=== PATIENT | female | born 1995 | race Caucasian/White ===

== ENCOUNTER 2022-01-05 17:43 | Emergency (ER) | payer OTHER, SELFPAY ==
--- NOTE | ~2022-01-05 | XR_ITS ---
XR ankle RT min 3V 01/05/2022 18:03 INDICATION: Right ankle pain after twisting injury PROCEDURE: 4 views right ankle COMPARISON: No prior studies for comparison. FINDINGS: Fracture, dislocation or subluxation is not identified. There are degenerative changes of t he midfoot. There is mild lateral soft tissue swelling. The soft tissues appear within normal limits. No foreign bodies are identified. IMPRESSION: 1: NO ACUTE BONE OR JOINT ABNORMALITY IDENTIFIED. Reviewed, dictated and finalized at location A. [employer]
[2022-01-05 17:50] VITALS: BP 122/66; PULSE 91; RESP 16; TEMP 36.7; O2SAT 99
--- NOTE | 2022-01-05 17:57 | ED.LOWEXIN ---
HPI - Extremity Injury (Lower) General Chief Complaint: Extremity Injury, Lower Stated Complaint: R ANKLE INJURY Time Seen by Provider: 01/05/22 18:00 Source: patient Mode of arrival: ambulatory Limitations: no limitations History of Present Illness HPI Narrative: Helio is a 26-year-old patient presenting to the clinic today with complaints of right ankle pain. He reports that he twisted it 2 days ago when stepping into a pothole while walking the dog. He has swelling and tenderness to the lateral aspect of the ankle with some bruising. Has been resting, elevating, and icing his right ankle with little improvement. Is painful to bear weight however he has been walking on it. Related Data Home Medications Medication Instructions Recorded Confirmed testosterone cypionate 200 mg IM ONCE 01/05/22 01/05/22 [Depo-Testosterone] Allergies Allergy/AdvReac Type Severity Reaction Status Date / Time manzanares Allergy Swelling Verified 01/05/22 17:50 Review of Systems Review of Systems: Pertinent positives per HPI. Patient denies any fever, chills, rash, headache, visual changes, dizziness, cough, runny nose, sore throat, shortness of breath, chest pain, palpitations, nausea, vomiting, diarrhea, constipation, abdominal pain, or any urinary issues. PMFSH Comments At the time of my signature, I reviewed and agree with the nursing past medical, surgical, social, and family history. There is no relevant family history pertinent to the patient complaint. Exam Narrative: General: Well-developed, well nourished, in no apparent distress Cardio: Regular rate and rhythm, s1 and s2 normal, no murmur appreciated. Resp: Clear to auscultation bilaterally, no rhonchi, rales, wheezing or rubs. Musculoskeletal: No deformity, tenderness to palpation over the lateral right ankle, old bruising noted just below the distal fibula, grossly normal range of motion, strong plantar and dorsal flexion with pain with resistance ,negative foot drop, pain with valgus and varus testing, negative anterior and posterior drawer sign, limping gait and station Course Course Emergency Course: Portions of this record may have been created with voice recognition software. Level of Care: Express Care Visit Vital Signs Vital signs: Vital Signs Temperature 36.7 C 01/05/22 17:50 Pulse Rate 91 01/05/22 17:50 Respiratory Rate 16 01/05/22 17:50 Blood Pressure 122/66 01/05/22 17:50 Pulse Oximetry 99 01/05/22 17:50 Temperature 36.7 C 01/05/22 17:50 Pulse Rate 91 01/05/22 17:50 Respiratory Rate 16 01/05/22 17:50 Blood Pressure 122/66 01/05/22 17:50 Pulse Oximetry 99 01/05/22 17:50 Vital signs reviewed MDM - Extremity Injury (Lower) Differential Diagnosis Differential diagnosis: Likely ankle sprain and strain, ankle fracture and other (tendon tear) Discharge Plan Discharge Clinical Impression: Ankle sprain and strain Patient Disposition: Home, Self-Care Condition: Stable Instructions: Ankle Sprain (ED) Additional Instructions: X-ray is negative for any fracture or malalignment. Rest, ice, elevate, and wear bobo wrap as directed Tylenol/motrin for pain as discussed. Crutches given in the clinic. Gradually bear weight No running or sports until healed. Work note given Follow up with your PCP if symptoms persist more than 1 week. Prescriptions: No Action testosterone cypionate [Depo-Testosterone] 200 mg/mL Oil 200 mg IM ONCE RF: 0 Follow-up/Referrals: PHYSICIAN,CHIEF EXECUTIVE [Primary Care Provider] - Stand Alone Forms: Work/School Release IP Time of Disposition: 18:16 Quality NIHSS Nursing Documentation ED NIHSS nursing documentation: reviewed/agree
== END 2022-01-05 18:23 | disposition home or self-care (01) ==
PROVIDERS: Emergency Provider Nurse Practitioner Family
DX: S93.401A Sprain of unspecified ligament of right ankle, initial encounter (principal); S96.911A Strain of unspecified muscle and tendon at ankle and foot level, right foot, initial encounter; X50.9XXA Other and unspecified overexertion or strenuous movements or postures, initial encounter
CPT/HCPCS: 73610; 99203; G0463